=== PATIENT | female | born 1960 | race African-American/Black ===

== ENCOUNTER 2018-12-14 18:23 | Emergency (ER) | payer MEDICAID ==
[~2018-12-14] VITALS: Ht 180.3 cm; Wt 60.8 kg
--- NOTE | 2018-12-14 18:39 | NUR ---
ED Nurse Note: Pt ambulated to ED from work, c/o headache 8/, numbness in left hand and twitching in left eye. Pt is A&Ox4, VSS.
[2018-12-14] MEDS ORDERED: Ketorolac 60mg Inj IM ONE (18:45)
[2018-12-14 18:58] VITALS: BP 144/88
--- NOTE | 2018-12-14 19:03 | NUR ---
HAND-OFF: Report given to [email or web address]
--- NOTE | 2018-12-14 19:05 | NUR ---
ED Nurse Note: Report received from CALI Agee. Pt resting comfortably. Showing no signs of acute distress. VSS. Will continue to monitor
[2018-12-14 19:07] LABS: BASOPHILS % (AUTO) 1.5 % (0.0-2.0); EOSINOPHILS % (AUTO) 0.4 % (0.0-3.0); HEMATOCRIT 37.3 % (37.0-47.0); HEMOGLOBIN 12.9 G/DL (12.0-16.0); MEAN CORPUSCULAR VOLUME 94 FL (80-99); NEUTROPHILS % (AUTO) 46.1 % (45.0-75.0); PLATELET COUNT 240 K/UL (150-450); RED BLOOD COUNT 3.97 M/UL (4.20-5.40); RED CELL DISTRIBUTION WIDTH 12.1 % (11.6-14.8); WHITE BLOOD COUNT 6.1 K/UL (4.8-10.8)
[2018-12-14 19:08] LABS: ANION GAP 6 mmol/L (5-15); BLOOD UREA NITROGEN 11 mg/dL (7-18); CALCIUM 9.5 MG/DL (8.5-10.1); CARBON DIOXIDE 30 MMOL/L (21-32); CHLORIDE 105 MMOL/L (98-107); CREATININE 1.1 MG/DL (0.55-1.30); POTASSIUM 3.4 MMOL/L (3.5-5.1); SODIUM 141 MMOL/L (136-145)
--- NOTE | 2018-12-14 19:11 | Emergency Room Report ---
History of Present Illness General Chief Complaint: Headache Source: Patient Present Illness HPI Patient presents with complaints of mild headache reports twitching of the right eye lid She reports that she had also sensation of tingling in her right hand Patient reports recently being on disability with knee problems and she has just returned to work she also reports getting a recent injection the left hip Denies any chest pain or short of breath denies any focal weakness denies any vomiting or diarrhea denies any change in speech Allergies: Coded Allergies: No Known Allergies (Unverified , 12/14/18) Patient History Past Medical History: see triage record Pertinent Family History: none Now: No Reviewed Nursing Documentation: PMH: Agreed; PSxH: Agreed Review of Systems All Other Systems: negative except mentioned in HPI Physical Exam Vital Signs Date Time Temp Pulse Resp B/P (MAP) Pulse Ox O2 Delivery O2 Flow Rate FiO2 12/14/18 18:29 98.6 86 20 96 Room Air 12/14/18 18:58 144/88 Sp02 EP Interpretation: reviewed, normal General Appearance: well appearing, no apparent distress Head: normocephalic, atraumatic Eyes: bilateral eye PERRL, bilateral eye EOMI ENT: hearing grossly normal, normal pharynx, TMs + canals normal, uvula midline Neck: full range of motion, supple, no meningismus, no bony tend Respiratory: lungs clear, normal breath sounds, no rhonchi, no respiratory distress, no retraction, no accessory muscle use Cardiovascular #1: normal peripheral pulses, regular rate, rhythm, no edema, no gallop, no JVD, no murmur Gastrointestinal: normal bowel sounds, non tender, soft, no mass, no organomegaly, non-distended, no guarding, no hernia, no pulsatile mass, no rebound Genitourinary: no CVA tenderness Musculoskeletal: normal inspection Neurologic: oriented x3, responsive, moderate needs teacher III-XII nml as tested, motor strength/ tone normal, sensory intact Psychiatric: mood/affect normal Skin: normal color, no rash, warm/dry, palpation normal Lymphatic: normal inspection, no adenopathy Medical Decision Making Diagnostic Impression: Primary Impression: Headache ER Course Multiple differentials and consideration including but not limited to infectious , neurological, neurosurgical pathology Patient does not have any abnormal neurological findings at this time Does not meet criteria for acute imaging blood work is at baseline levels Potentially the steroid injection could have caused some headache Otherwise patient is feeling better and stable for close outpatient follow-up Labs Test 12/14/18 18:48 White Blood Count 6.1 K/UL (4.8-10.8) Red Blood Count 3.97 M/UL (4.20-5.40) Hemoglobin 12.9 G/DL (12.0-16.0) Hematocrit 37.3 % (37.0-47.0) Mean Corpuscular Volume 94 FL (80-99) Mean Corpuscular Hemoglobin 32.5 PG (27.0-31.0) Mean Corpuscular Hemoglobin Concent 34.6 G/DL (32.0-36.0) Red Cell Distribution Width 12.1 % (11.6-14.8) Platelet Count 240 K/UL (150-450) Mean Platelet Volume 6.7 FL (6.5-10.1) Neutrophils (%) (Auto) 46.1 % (45.0-75.0) Lymphocytes (%) (Auto) 45.0 % (20.0-45.0) Monocytes (%) (Auto) 7.0 % (1.0-10.0) Eosinophils (%) (Auto) 0.4 % (0.0-3.0) Basophils (%) (Auto) 1.5 % (0.0-2.0) Sodium Level 141 MMOL/L (136-145) Potassium Level 3.4 MMOL/L (3.5-5.1) Chloride Level 105 MMOL/L (98-107) Carbon Dioxide Level 30 MMOL/L (21-32) Anion Gap 6 mmol/L (5-15) Blood Urea Nitrogen 11 mg/dL (7-18) Creatinine 1.1 MG/DL (0.55-1.30) Estimat Glomerular Filtration Rate 51.3 mL/min (>60) Glucose Level 102 MG/DL (74-106) Calcium Level 9.5 MG/DL (8.5-10.1) Rhythm Strip Diag. Results EP Interpretation: yes Rate: 80 Rhythm: NSR, no PVC's, no ectopy Last Vital Signs Date Time Temp Pulse Resp B/P (MAP) Pulse Ox O2 Delivery O2 Flow Rate FiO2 12/14/18 18:58 98.6 86 20 144/88 100 Room Air Status: improved Disposition: HOME, SELF-CARE Condition: Improved Scripts Ibuprofen* (MOTRIN*) 600 Mg Tablet 600 MG ORAL Q8H PRN for For Pain, #20 TAB 0 Refills Prov: Alcira Logan DO 12/14/18 Additional Instructions: Patient is provided with the discharge instructions notified to follow up with primary doctor in the next 2-3 days otherwise return to the er with any worsening symptoms. Please note that this report is being documented using [employer] technology. This can lead to erroneous entry secondary to incorrect interpretation by the dictating instrument. Alcira Logan DO December 14, 2018 19:11
[2018-12-14] MEDS ORDERED: IBUPROFEN600 MG ORAL (19:37)
--- NOTE | 2018-12-14 19:39 | NUR ---
ED Nurse Note: Pt cleared by . Pt A/Ox4, showing no signs of acute distress. Discharge paperwork and prescriptions provided. Pt verbalized understanding of all instructions. ID band removed. All belongings taken with patient. Pt ambulated out of ED with steady gait.
[2018-12-14 19:40] VITALS: BP 110/69
== END 2018-12-14 19:39 | disposition home or self-care (01) ==
LOC: EMR 19:00
DX: R51 Headache (principal); R20.2 Paresthesia of skin
CPT/HCPCS: 36415; 80048; 85025; 96372; 99284

== ENCOUNTER 2020-01-02 10:09 | Emergency (ER) | payer MEDICAID ==
[~2020-01-02] VITALS: Ht 154.9 cm; Wt 62.1 kg
[~2020-01-02 10:09] MED LIST: IBUPROFEN400 MG ORAL; IBUPROFEN600 MG ORAL; ROBITUSSIN100 MG/52 ORAL; TAMIFLU75 MG ORAL
[2020-01-02 10:20] VITALS: BP 159/96
--- NOTE | 2020-01-02 10:28 | NUR ---
ED Nurse Note: Pt from home walked in due to right hand pain and numbness x 2 weeks. Denies any recent trauma or injury. No redness or swelling. AAO x4 and ambulatory.
--- NOTE | 2020-01-02 10:43 | Emergency Room Report ---
History of Present Illness General Chief Complaint: Upper Extremity Injury Source: Patient Present Illness HPI Patient is a 59-year-old female past medical history of osteoarthritis who presents to the ER complaining of right hand pain. Patient states the pain is been present for months. She states that she bought a land that she has been using. She has not been taking any medications. She denies any swelling, redness, fever, chills or trauma. Patient states that she is on disability due to old injury 2-1/2 years ago where she injured her left knee and hip. Patient denies any chest pain, cough or shortness of breath. Allergies: Coded Allergies: No Known Allergies (Unverified , 12/14/18) COVID-19 Screening Contact w/high risk pt: No Recent Travel to affected area: No Experienced COVID-19 symptoms?: No COVID-19 Testing performed [employer]: No Patient History Now: No Reviewed Nursing Documentation: PMH: Agreed; PSxH: Agreed Review of Systems All Other Systems: negative except mentioned in HPI Physical Exam Vital Signs Date Time Temp Pulse Resp B/P (MAP) Pulse Ox O2 Delivery O2 Flow Rate FiO2 01/02/20 10:20 98.2 88 20 159/96 98 Room Air Sp02 EP Interpretation: reviewed, normal General Appearance: alert, GCS 15, non-toxic, mild distress Head: normocephalic, atraumatic Eyes: bilateral eye normal inspection, bilateral eye PERRL ENT: hearing grossly normal, normal pharynx, no angioedema, normal voice Neck: full range of motion, supple/symm/no masses Respiratory: chest non-tender, lungs clear, normal breath sounds, speaking full sentences Cardiovascular #1: regular rate, rhythm, no edema Gastrointestinal: normal bowel sounds, non tender, soft, non-distended, no guarding, no rebound Rectal: deferred Musculoskeletal: other - R hand diffuse ttp, no swelling or erythema, 2+ radial pulses bl, capillary refill is immediate, normal range of motion Neurologic: alert, motor strength/tone normal, oriented x3, sensory intact, responsive, speech normal Psychiatric: no suicidal/homicidal ideation Skin: no rash Lymphatic: no adenopathy Medical Decision Making Diagnostic Impression: Primary Impression: Hand pain, right Additional Impression: Arthritis ER Course Patient's x-ray demonstrates no acute findings. There is no swelling of the hand or erythema. Patient given Toradol with improvement of symptoms. She will be discharged home with a prescription for Motrin. After discussing risks and benefits of further diagnostics, treatment plans, as well as indications for and risks of admission, the patient is agreeable to being discharged home. I have explained that their evaluation and treatment in the emergency department today is an important step towards them achieving better health but that their evaluation today is not intended to replace further evaluation and treatment by a physician in their local clinic. I have explained that while the current findings suggest no immediate life threatening emergency they will require further evaluation and treatment by a physician of their choice in their area. They understand that it will be necessary for them to review the final reports of their ED visit with their clinic physician. We have reviewed indications for return to the Emergency Department. I have explained that additional time may need to pass and/or additional testing as an outpatient may be necessary before a definitive diagnosis can be made. They tell me they are willing to follow up as instructed within the timeframe I recommend. They appear to understand what we discussed. Additionally they understand that if they are unable to be seen by an outpatient physician they are welcome, and in fact should, return to the Emergency Department for a repeat evaluation. The patient is stable at time of discharge. Other X-Ray Diagnostic Results Other X-Ray Diagnostic Results : X-Ray ordered: R hand # of Views/Limited Vs Complete: 3 View Indication: Pain EP Interpretation: Yes Interpretation: no dislocation, no soft tissue swelling, no fractures Impression: No acute disease Electronically Signed by: Blanca Chase MD Last Vital Signs Date Time Temp Pulse Resp B/P (MAP) Pulse Ox O2 Delivery O2 Flow Rate FiO2 01/02/20 10:20 98.2 88 20 159/96 (117) 98 Room Air Disposition: HOME, SELF-CARE Condition: Stable - improved Scripts Ibuprofen* (MOTRIN*) 600 Mg Tablet 600 MG ORAL FOUR TIMES A DAY, #30 TAB 0 Refills Prov: Blanca Chase M.D. 01/02/20 Tramadol Hcl* (ULTRAM*) 50 Mg Tablet 50 MG ORAL Q6H PRN for For Pain, #20 TAB 0 Refills Prov: Blanca Chase M.D. 01/02/20 Referrals: [facility],REFERRING (PCP) Additional Instructions: The patient was provided with discharge instructions, notified to follow-up with a primary care doctor and or specialist in the next 24-48 hours, and to return to the ED if they have worsening of their symptoms. Please note that this report is being documented using [employer] technology. This can lead to erroneous entry secondary to incorrect interpretation by the dictating instrument. Blanca Chase M.D. January 02, 2020 10:43
[2020-01-02] MEDS ORDERED: Ketorolac 30mg Inj IM ONE (10:45)
[2020-01-02] MEDS ORDERED: TRAMADOL HCL50 MG ORAL (11:29)
[2020-01-02] MEDS ORDERED: IBUPROFEN600 M1 ORAL (11:29)
[2020-01-02 12:21] VITALS: BP 159/96
--- NOTE | 2020-01-02 12:23 | NUR ---
ED Nurse Note: Pt cleared by health care Provider for discharge. DC instructions/prescription was given and explained to pt and verbalized understanding of teachings. All medical deviecs such as ID band removed. Pt is AAO x4, ambulatory and left with all personal belongings.
--- NOTE | 2020-01-02 13:00 | Diagnostic Imaging Report ---
EXAM: X-RAY XRAY Hand Complete R CLINICAL HISTORY: Hand pain. COMPARISON: None FINDINGS: Total of 3 views of the right hand were obtained. Alignment is anatomic. There is no fracture, bony lesions or erosions. Joint spaces are unremarkable. Surrounding soft tissue is normal. IMPRESSION: NO ACUTE BONY ABNORMALITY.
== END 2020-01-02 12:23 | disposition home or self-care (01) ==
LOC: EMR 10:30
DX: M25.541 Pain in joints of right hand (principal); M19.90 Unspecified osteoarthritis, unspecified site
CPT/HCPCS: 73130; 96372; J1885; Z7502; 99283